=== PATIENT | male | born 1995 | race Two or more races ===

== ENCOUNTER 2017-04-12 11:31 | Emergency (ER) | payer OTHER ==
[~2017-04-12] VITALS: Ht 167.6 cm; Wt 70.3 kg
[2017-04-12 11:47] VITALS: BP 131/82
[2017-04-12 12:07] VITALS: BP 131/82
--- NOTE | 2017-04-12 12:13 | Emergency Room Report ---
History of Present Illness General Chief Complaint: General Complaint Source: Patient Present Illness HPI 21-year-old male no significant past medical history presenting with paresthesias for one year Patient states that sometimes all of a sudden his whole body will feel numb,, comes and goes, no headache neck pain difficulty speaking, motor weakness. Patient states that he came today as he has not seen a doctor in years. Denies any current numbness. No other complaints Denies doing drugs, has been eating and drinking normally Allergies: Coded Allergies: No Known Allergies (Unverified , 04/12/17) Patient History Past Medical History: see triage record Past Surgical History: none Pertinent Family History: none Reviewed Nursing Documentation: PMH: Agreed, PSxH: Agreed Nursing Documentation-PMH Past Medical History: No Stated History Review of Systems All Other Systems: negative except mentioned in HPI Physical Exam Vital Signs Date Time Temp Pulse Resp B/P (MAP) Pulse Ox O2 Delivery O2 Flow Rate FiO2 04/12/17 11:37 98.6 80 20 131/82 100 Room Air Sp02 EP Interpretation: reviewed, normal General Appearance: normal inspection, well appearing, no apparent distress, alert, GCS 15, non-toxic Head: normocephalic, atraumatic Eyes: bilateral eye normal inspection, bilateral eye PERRL, bilateral eye EOMI ENT: normal ENT inspection, normal pharynx, normal voice, moist mucus membranes Neck: normal inspection, full range of motion, supple Respiratory: normal inspection, lungs clear, normal breath sounds, no respiratory distress, no retraction, no wheezing, speaking full sentences, chest symmetrical Cardiovascular #1: normal inspection, regular rate, rhythm, no edema, normal capillary refill Cardiovascular #2: 2+ radial (R), 2+ radial (L) Gastrointestinal: normal inspection, non tender, soft, non-distended, no guarding Genitourinary: no CVA tenderness Musculoskeletal: normal inspection, back normal, normal range of motion, non- tender Neurologic: normal inspection, alert, oriented x3, responsive, desk interviewer III-XII nml as tested, motor strength/tone normal, sensory intact, cerebellar normal, normal gait, speech normal Psychiatric: normal inspection, judgement/insight normal, memory normal Skin: normal inspection, normal color, no rash, warm/dry, well hydrated, normal turgor Medical Decision Making Diagnostic Impression: Primary Impression: Paresthesia ER Course 21-year-old male with paresthesias x 1 yr DDX: Paresthesias, at this current visit patient is not experiencing any numbness, neurological exam is completely normal Plan: No intervention the emergency room ER course: Patient has remained stable during ED stay. Disposition: Patient is to be discharged to home. Patient is instructed to follow up with their primary care doctor within 5 days. Strict return precautions discussed with patient such as michele, blurry vision, neck pain motor or sensory weakness. Patient verbalizes understanding and agrees with plan. Please note that this Emergency Department Report was dictated using [employer] attendant technology software, occasionally this can lead to erroneous entry secondary to interpretation by the dictation equipment Last Vital Signs Date Time Temp Pulse Resp B/P (MAP) Pulse Ox O2 Delivery O2 Flow Rate FiO2 04/12/17 12:07 98.6 20 131/82 100 Room Air 04/12/17 11:37 80 Disposition: HOME, SELF-CARE Condition: Stable Patient Instructions: Paresthesia, [id number] Additional Instructions: Please followup with your primary doctor in one week Maryuri Mckoen M.D. Apr 12, 2017 12:13
== END 2017-04-12 12:12 | disposition home or self-care (01) ==
LOC: EMR 12:05
DX: R20.2 Paresthesia of skin (principal)
CPT/HCPCS: 99282

== ENCOUNTER 2017-12-24 19:14 | Emergency (ER) | payer SELFPAY ==
[~2017-12-24] VITALS: Ht 165.1 cm; Wt 75.7 kg
[2017-12-24 19:30] VITALS: BP 136/84
[2017-12-24] MEDS ORDERED: IBUPROFEN600 MG ORAL (20:34)
[2017-12-24 20:40] VITALS: BP 136/84
--- NOTE | 2017-12-24 21:35 | Emergency Room Report ---
History of Present Illness General Chief Complaint: Chest Pain Source: Patient Present Illness HPI 22-year-old male presents ED complaining of chest pain. midsternal, sharp, 5 out of 10, intermittent. Denies shortness of breath. Denies pain at this time. Denies alcohol or drug use. No cardiac risk factors. Remitting relieving factors. Denies any other associated symptoms Allergies: Coded Allergies: No Known Allergies (Unverified , 04/12/17) Patient History Past Medical History: none Past Surgical History: none Pertinent Family History: none Social History: Denies: smoking, alcohol use, drug use Immunizations: UTD Reviewed Nursing Documentation: PMH: Agreed; PSxH: Agreed Nursing Documentation-PMH Past Medical History: No Stated History Review of Systems All Other Systems: negative except mentioned in HPI Physical Exam Vital Signs Date Time Temp Pulse Resp B/P (MAP) Pulse Ox O2 Delivery O2 Flow Rate FiO2 12/24/17 19:15 98.3 76 16 140/84 98 Room Air 98.2 Sp02 EP Interpretation: reviewed, normal General Appearance: no apparent distress, alert, GCS 15, non-toxic Head: normocephalic, atraumatic Eyes: bilateral eye normal inspection, bilateral eye PERRL ENT: hearing grossly normal, normal pharynx, no angioedema, normal voice Neck: full range of motion, supple/symm/no masses Respiratory: chest non-tender, lungs clear, normal breath sounds, speaking full sentences Cardiovascular #1: regular rate, rhythm, no edema Cardiovascular #2: 2+ carotid (R), 2+ carotid (L), 2+ radial (R), 2+ radial (L) , 2+ dorsalis pedis (R), 2+ dorsalis pedis (L) Gastrointestinal: normal bowel sounds, non tender, soft, non-distended, no guarding, no rebound Rectal: deferred Genitourinary: normal inspection, no CVA tenderness Musculoskeletal: back normal, gait/station normal, normal range of motion, non- tender Neurologic: alert, oriented x3, responsive, motor strength/tone normal, sensory intact, speech normal Psychiatric: judgement/insight normal, memory normal, mood/affect normal, no suicidal/homicidal ideation Reflexes: 3+ bicep (R), 3+ bicep (L), 3+ tricep (R), 3+ tricep (L), 3+ knee (R) , 3+ knee (L) Skin: normal color, no rash, warm/dry, well hydrated Lymphatic: no adenopathy Medical Decision Making Diagnostic Impression: Primary Impression: Chest pain Qualified Codes: R07.9 - Chest pain, unspecified ER Course Hospital Course 22-year-old M presents ED complaining of chest pain x 2 days Differential diagnoses include: Rib fracture, KS/unstable angina, contusion, muscle strain Clinical course Patient placed on stretcher. After initial history and physical I ordered troponin, EKG, chest x-ray. labs reviewed- troponin 0.000 EKG - NSR, no acute ischemic changes interpreted by me Chest x-ray-no cardiomegaly, no rib fracture, no pneumothorax, no acute process per HEART score, patient is at low risk for acute event given lack of risk factors. Patient can be safely discharged to home pending outpatient followup. I. I feel this is a highly complex case requiring extensive working including EKG/Rhythm strip, Xray/CT/US, Blood/urine lab work, repeat exams while in ED, and administration of strong opiates/narcotics for pain control, admission to hospital or close patient follow up. Diagnosis - chest pain Stable and discharged to home with Rx Motrin. Instructed to followup with PMD. Return to ED if symptoms recur or worsen Labs Test 12/24/17 19:45 Troponin I 0.000 ng/mL (0.000-0.056) EKG Diagnostic Results Rate: normal Rhythm: NSR ST Segments: no acute changes ASA given to the pt in ED: No Rhythm Strip Diag. Results EP Interpretation: yes Rhythm: NSR, no PVC's, no ectopy Chest X-Ray Diagnostic Results Chest X-Ray Diagnostic Results : Chest X-Ray Ordered: Yes # of Views/Limited/Complete: 1 View Indication: Chest Pain EP Interpretation: Yes Interpretation: no consolidation, no effusion, no pneumothorax, no acute cardiopulmonary disease Impression: No acute disease Electronically Signed by: Electronically signed by Raphael Delaney MD Last Vital Signs Date Time Temp Pulse Resp B/P (MAP) Pulse Ox O2 Delivery O2 Flow Rate FiO2 12/24/17 20:40 98.2 66 16 136/84 98 Room Air 98.2 Status: improved Disposition: HOME, SELF-CARE Condition: Stable Scripts Ibuprofen* (MOTRIN*) 600 Mg Tablet 600 MG ORAL Q8H PRN for For Pain, #30 TAB 0 Refills Prov: Raphael Delaney MD 12/24/17 Referrals: NON PHYSICIAN (PCP) Patient Instructions: Nonspecific Chest Pain Raphael Delaney MD Dec 24, 2017 21:35
--- NOTE | 2017-12-25 11:44 | Diagnostic Imaging Report ---
Indication: Dyspnea Comparison: None A single view chest radiograph was obtained. Findings: Cardiomediastinal appearance is within normal limits for age. Pulmonary vascularity is appropriate. The diaphragmatic contour is smooth and costophrenic angles are sharp. No pleural effusions are identified. The bones are unremarkable. Impression: No acute findings
== END 2017-12-24 20:40 | disposition home or self-care (01) ==
LOC: EMR 19:40
DX: R07.9 Chest pain, unspecified (principal)
CPT/HCPCS: 71045; 84484; 93005; 99283